=== PATIENT | female | born 2000 | race African-American/Black ===

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

== ENCOUNTER 2018-02-07 00:46 | Emergency (ER) | payer MEDICAID ==
[2018-02-07] MEDS ORDERED: PROPARACAINE/FLUORESCEIN SOD 5 ML OPHT.BTL OP ONE (01:04)
--- NOTE | 2018-02-07 01:04 | EDPHY ---
H & P Stated Complaint: contact stuck in R eye since 2229 Time Seen by Provider: 02/07/18 01:03 [facility] HPI/ROS: HPI CHIEF COMPLAINT: "I think I have a contact stuck in my right eye" HISTORY OF PRESENT ILLNESS: Very pleasant 17-year-old female she is otherwise healthy presents emergency room stating that she thinks she may have a contact stuck in right eye. Patient states that she typically wears daily contacts and changes in daily but for the past week she has been very busy and has been wearing her contacts and sleeping with them for the past week. She thinks she may have a contact stocking her right eye. She was able to get the contact out of her left eye. She has discomfort and conjunctival injection of the right eye. Eye pain. No drainage no discharge. No fever. Past Medical History: Denies medical history Past Surgical History: Denies surgical history Social History: Denies drugs alcohol tobacco. [employer] student from [employer] Family History: Noncontributory ROS REVIEW OF SYSTEMS: 10 Systems were reviewed and negative with the exception of the elements mentioned in the history of present illness. Exam Constitutional triage nursing summary reviewed, vital signs reviewed, awake/ alert. Eyes left eye normal, right eye: Conjunctival injection, globe is soft. Extraocular movements intact. No drainage. Pupil equal round react to light. No flare. Posterior eye exam without dilatation unremarkable. Proparacaine applied to the eye which gave her pain control. No uptake on the fluorescein. No evidence of corneal abrasion or corneal ulcer. No evidence of contact. I do not visualize a contact in the eye. Slit lamp was used for evaluation of this. Unable to see contact. I do not believe there is a contacted her eye. Lids were everted. No evidence of retained foreign body or contact under the eyelid. HENT normal inspection, atraumatic, moist mucus membranes, no epistaxis, neck supple/ no meningismus, no raccoon eyes. Respiratory clear to auscultation bilaterally, normal breath sounds, no respiratory distress, no wheezing. Cardiovascular rate normal, regular rhythm, no murmur, no edema, distal pulses normal. Gastrointestinal soft, non-tender, no rebound, no guarding, normal bowel sounds, no distension, no pulsatile mass. Genitourinary no CVA tenderness. Musculoskeletal no midline vertebral tenderness, full range of motion, no calf swelling, no tenderness of extremities, no meningismus, good pulses, neurovascularly intact. Skin pink, warm, & dry, no rash, skin atraumatic. Neurologic awake, alert and oriented x 3, AAOx3, moves all 4 extremities equally, motor intact, sensory intact, CN II-XII intact, normal cerebellar, normal vision, normal speech. Psychiatric normal mood/affect. Heme/Lymph/Immune no lymphadenopathy. Differential Diagnosis: But is not limited to in a particular order retained foreign body in the eye, contact stuck in I, corneal abrasion, corneal ulcer, conjunctivitis, conjunctivitis from retained contacts. Medical Decision Making: Plan for this patient has been wearing contacts for week without changing them and sleeping with them. I do not see a retained contact in the right eye. I do not see a corneal abrasion or corneal ulcer however right eye conjunctiva is injected. Obviously painful. No obvious significant infection. Will placed on Ocuflox. Recommend close follow-up with Ophthalmology she understands should call there in the morning and follow up with them on Thursday. Splint was used. I was not able to appreciate a foreign body or retained contact. Visual acuity was attempted to be obtained however she does not have her glasses with her and no contacts in. She is unable to read the board. Additionally return precautions discussed. Additionally recommend not wearing her contacts for 2 weeks. Throw out her current contact case, remove her current contacts from the case. If her eyes are improved in 2 weeks she can start back on her contacts. Recommend close follow-up with Ophthalmology Ocuflox eyedrops as prescribed. This will cover Pseudomonas given contact wearer. Recommend close follow-up with Ophthalmology she understands this agreeable for plan. Re-evaluation: Recommend close follow-up with Ophthalmology she understands. Return precautions discussed. Source: Patient - Personal History LMP (Females 10-55): 1-7 Days Ago Current Tetanus/Diphtheria Vaccine: Yes - Medical/Surgical History Hx Asthma: No Hx Chronic Respiratory Disease: No Hx Diabetes: No Hx Cardiac Disease: No Hx Renal Disease: No Hx Cirrhosis: No Hx Alcoholism: No Hx HIV/AIDS: No Hx Splenectomy or Spleen Trauma: No Other PMH: denies - Social History Smoking Status: Never smoked Constitutional: Initial Vital Signs Temperature (C) 36.9 C 02/07/18 00:57 Heart Rate 65 02/07/18 00:57 Respiratory Rate 18 02/07/18 00:57 Blood Pressure 130/80 H 02/07/18 00:57 O2 Sat (%) 99 02/07/18 00:57 O2 Delivery Mode Room Air Allergies/Adverse Reactions: No Known Allergies Allergy (Verified 02/07/18 00:59) Home Medications: Medication Instructions Recorded Ofloxacin 0.3% [Ocuflox 0.3%] 2 drops OP QID #1 opht.btl 02/07/18 Medical Decision Making - Data Points Medications Given: Discontinued Medications Fluorescein Sodium (Bioglo) 1 mg OP EDNOW ONE Stop: 02/07/18 01:12 MST Last Admin: 02/07/18 02:28 Dose: Not Given Proparacaine HCl (Alcaine 0.5%) 1 drops RTEYE EDNOW ONE Stop: 02/07/18 01:12 MST Last Admin: 02/07/18 02:28 Dose: Not Given Proparacaine HCl/Fluorescein Sodium (Flucaine) 2 drops OP EDNOW ONE Stop: 02/07/18 01:05 MST Last Admin: 02/07/18 02:28 Dose: Not Given Departure - Departure Disposition: Home, Routine, Self-Care Clinical Impression: Eye pain Qualifiers: Laterality: right Qualified Code(s): H57.11 - Ocular pain, right eye Conjunctivitis Qualifiers: Conjunctivitis type: acute Acute conjunctivitis type: unspecified Laterality: right Qualified Code(s): H10.31 - Unspecified acute conjunctivitis, right eye Condition: Good Instructions: Eye Pain (ED), Conjunctivitis (ED) Additional Instructions: 1. Do not rub your eye. 2. Cool compresses. 3. Ibuprofen for pain control 4. Antibiotic eyedrops as prescribed 5. Follow up with Ophthalmology call their 1st thing on Thursday 6. Return emergency room if worsening symptoms 7. Do not wear contacts 8. Throw out your contact tray. Referrals: NONE *PRIMARY CARE P,. [Primary Care Provider] - As per Instructions Catrachito Hernandez MD [Medical Doctor] - As per Instructions Prescriptions: Ofloxacin 0.3% [Ocuflox 0.3%] 2 drops OP QID #1 opht.btl
[2018-02-07] MEDS ORDERED: FLUORESCEIN SODIUM 1 MG STRIP OP ONE ×3 (01:08→01:51)
[2018-02-07] MEDS ORDERED: PROPARACAINE 0.5% 15 ML OPHT DROP RTEYE ONE (01:11)
[2018-02-07] MEDS ORDERED: PROPARACAINE/FLUORESCEIN SOD 5 ML OPHT.BTL ONE (01:12)
[2018-02-07] MEDS ORDERED: PROPARACAINE 0.5% 15 ML OPHT DROP ONE (01:51)
[2018-02-07] MEDS ORDERED: OFLOXACIN 0.3% 5ML OPHT DROPS EACHEYE ONE (02:28)
[2018-02-07] MEDS ORDERED: OFLOXACIN 0.3% SOLN PREPACK OPHT.BTL TAKEHOME ONE (02:28)
[2018-02-07 02:57] VITALS: BP 113/76
== END 2018-02-07 02:57 | disposition home or self-care (01) ==
DX: H57.11 Ocular pain, right eye (principal); H10.31 Unspecified acute conjunctivitis, right eye